=== PATIENT | female | born 2000 ===

== ENCOUNTER 2021-01-01 15:46 | Emergency (ER) | payer OTHER ==
[2021-01-01 15:58] VITALS: RESP 18; TEMP 98.3
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
[2021-01-01 18:13] VITALS: BP 133/78; PULSE 89
== END 2021-01-01 18:13 | disposition home or self-care (01) ==
LOC: EC 15:46
DX: R51.9 Headache, unspecified (principal); F17.200 Nicotine dependence, unspecified, uncomplicated; V43.52XA Car driver injured in collision with other type car in traffic accident, initial encounter; Y92.410 Unspecified street and highway as the place of occurrence of the external cause; Y93.89 Activity, other specified
CPT/HCPCS: 71046; 99284